=== PATIENT | female | born 1950 | race Caucasian/White ===

== ENCOUNTER → 2016-07-27 | Outpatient (CLI) | payer OTHER ==
--- NOTE | 2016-07-27 14:34 | DX ---
Left Ankle, Three Views History: Follow up fracture. Comparison: Left ankle June 29, 2016. Findings: There is decreased visibility of a transverse nondisplaced fracture through the lateral mal leolus, with persistent lucent fracture line. Subtle contour irregularity of the medial malleolus is new since the comparison, possibly related to a healing nondisplaced avulsion fracture. The talar dom e and ankle mortise are intact. Moderate lateral soft tissue swelling is present. Impressions 1. Healing nondisplaced transverse fracture of the lateral malleolus. 2. Equivocal healing nondisplaced avulsion fracture of the medial malleolus.
== END ==
LOC: BMCIMAGING 13:26
PROVIDERS: ATTEND Podiatrist Foot & Ankle Surgery
DX: S82.65XD Nondisplaced fracture of lateral malleolus of left fibula, subsequent encounter for closed fracture with routine healing (principal)

== ENCOUNTER → 2016-08-17 | Outpatient (CLI) | payer OTHER ==
--- NOTE | 2016-08-17 14:58 | DX ---
Left Ankle, Three Views History: Follow-up fracture, date of injury June 26, 2016, S82.657Q Comparison: July 27, 2016 Findings: The distal fibular fracture remains normally aligned and is associated with increasing radi opaque callus. The ankle mortise itself remains intact. Lateral soft tissue swelling is improving. Impression: The distal fibular fracture continues to heal..
== END ==
LOC: BMCIMAGING 13:39
PROVIDERS: ATTEND Podiatrist Foot & Ankle Surgery
DX: S82.832D Other fracture of upper and lower end of left fibula, subsequent encounter for closed fracture with routine healing (principal)

== ENCOUNTER → 2016-09-14 | Outpatient (CLI) | payer OTHER | LOC: BMCIMAGING 13:58 | PROVIDERS: ATTEND Podiatrist Foot & Ankle Surgery | DX: S82.832D Other fracture of upper and lower end of left fibula, subsequent encounter for closed fracture with routine healing (principal) ==

== ENCOUNTER → 2016-10-18 | Outpatient (CLI) | payer OTHER | LOC: BMCIMAGING 15:25 | PROVIDERS: ATTEND Podiatrist Foot & Ankle Surgery | DX: S82.62XD Displaced fracture of lateral malleolus of left fibula, subsequent encounter for closed fracture with routine healing (principal); M77.32 Calcaneal spur, left foot; M19.072 Primary osteoarthritis, left ankle and foot; M85.872 Other specified disorders of bone density and structure, left ankle and foot ==